=== PATIENT | female | born 2000 | race Caucasian/White ===

== ENCOUNTER 2021-03-13 20:45 | Emergency (ER) | payer SELFPAY ==
[2021-03-13 20:46] VITALS: BP 113/71; PULSE 101; RESP 16; O2SAT 100; BMI 21.9
--- NOTE | 2021-03-13 21:05 | CT_ITS ---
PROCEDURE INFORMATION: Exam: CT Abdomen And Pelvis With Contrast Exam date and time: 03/13/2021 9:05 PM Age: 21 years old Clinical indication: Abdominal pain; Prior surgery; Surgery type: Hiatal hernia repair; Patient HX: Rlq/llq pain TECHNIQUE: Imaging protocol: Computed tomography of the abdomen and pelvis with contrast. Radiation optimization: All CT scans at this facility use at least one of these dose optimization techniques: automated exposure control; mA and/or kV adjustment per patient size (includes targeted exams where dose is matched to clinical indication); or iterative reconstruction. Contrast material: ISOVUE; Contrast volume: 75 ml; Contrast route: IV; COMPARISON: No relevant prior studies available. FINDINGS: Liver: Normal. No mass. Gallbladder and bile ducts: Normal. No calcified stones. No ductal dilation. Pancreas: Normal. No ductal dilation. Spleen: Normal. No splenomegaly. Adrenal glands: Normal. No mass. Kidneys and ureters: Normal. No hydronephrosis. Stomach and bowel: Unremarkable. No obstruction. No mucosal thickening. Appendix: Normal appendix. Intraperitoneal space: The trace physiologic free fluid in the pelvis. Vasculature: Unremarkable. No abdominal aortic aneurysm. Lymph nodes: Unremarkable. No enlarged lymph nodes. Urinary bladder: Unremarkable as visualized. Reproductive: Unremarkable as visualized. Bones/joints: Unremarkable. No acute fracture. Soft tissues: Unremarkable. IMPRESSION: No acute findings.
[2021-03-13 21:13] LABS: Microscopic, Urine URINE MICROSCOPIC (MICROSCOPIC)
[2021-03-13 21:18] LABS: Basophils # 0.2 K/mm3 (0-0.2); Basophils % 2.3 % (0.1-2.0); Eosinophils # 0.2 K/mm3 (0.0-0.4); Eosinophils % 2.5 % (0.1-12.0); Hematocrit 43.6 % (37.0-47.0); Hemoglobin 14.1 g/dL (12.2-16.2); Lymphocytes # 3.5 K/mm3 (0.7-4.5); Lymphocytes % 41.3 % (10-50); Mean Corpuscular HGB Conc 32.4 g/dL (31.8-35.4); Mean Corpuscular Hemoglobin 30.3 pg (27.0-31.2); Mean Corpuscular Volume 93.6 fl (81-99); Mean Platelet Volume 9.3 fl (7.4-10.4); Monocytes # 0.6 K/mm3 (0.1-1.0); Monocytes % 6.7 % (1.7-9.3); Neutrophils % 47.2 % (37.0-80.0); Platelet Count 266 K/mm3 (142-424); Red Blood Count 4.66 M/mm3 (4.20-5.40); Red Cell Distribution Width 12.1 % (11.5-17.5); White Blood Count 8.5 K/mm3 (4.8-10.8)
[2021-03-13 21:29] LABS: HCG Qualitative, Serum Negative (Negative)
[2021-03-13 21:30] LABS: Appearance,Urine CLEAR (Clear); Bilirubin,Urine Negative (Negative); Blood, Urine Negative (Negative); Color,Urine YELLOW (Yellow); Glucose,Urine (UA) Negative (Negative); Ketones,Urine Negative (Negative); Leukocyte Esterase,Urine Negative (Negative); Nitrate,Urine Negative (Negative); PH,Urine 6.5 (5.0-8.5); Protein,Urine Negative (Negative); Specific Gravity, Urine <= 1.005 (1.005-1.030); Urobilinogen,Urine 0.2 EU/dl (0.2)
[2021-03-13 21:37] LABS: Alanine Aminotransferase 19 U/L (12-78); Albumin Level 5.3 g/dl (3.5-5.0); Albumin/Globulin Ratio 1.6 (1.1-1.8); Alkaline Phosphatase 45 U/L (38-126); Amylase 70 U/L (30-110); Anion Gap 13.7 mEq/L (5-15); Aspartate Amino Transferase 34 U/L (14-36); Bilirubin,Total 0.4 mg/dl (0.2-1.3); Blood Urea Nitrogen 13 mg/dl (7-17); Calcium 10.2 mg/dl (8.4-10.2); Carbon Dioxide 30 mmol/L (22.0-30.0); Chloride 97 mmol/L (98-107); Creatinine Clearance Estimated 92 mL/min (50-200); Estimated Glomerular Filt Rate 90 ml/min (>60); GFR (African American) 109 ML/MIN (>60); Globulin 3.4 g/dL (1.3-3.2); Glucose 105 mg/dl (74-100); Potassium 3.7 mmoL/L (3.5-5.1); Sodium 137 mmol/L (136-145); Total Protein,Serum 8.7 g/dl (6.3-8.2)
[2021-03-13 21:37] LABS: Lipase 78 U/L (23-300)
[2021-03-13 21:42] LABS: C-Reactive Protein 0.6 mg/L (0-4)
[2021-03-13 21:48] LABS: Bacteria,Urine 1+ /lpf
[2021-03-13 21:49] LABS: Erythrocyte Sedimentation Rate 3 mm/hr (0-20)
--- NOTE | 2021-03-13 21:49 | [facility].EDNVD ---
ED Disposition Clinical Impression: Abdominal pain Qualifiers: Abdominal location: right lower quadrant Qualified Code(s): R10.31 - Right lower quadrant pain Disposition: Home, Self-Care Condition on Discharge: Good Instructions: DI for Acute Abdominal Pain Additional Instructions: fluids and call pcp for follow up Referrals: Evelyn Boykin APRN [Primary Care Provider] - - Critical Care Critical Care Time: No Attestation: On 03/13/21, the high probability of a clinically significant, sudden or life threatening deterioration of the following system(s) required my full and direct attention, intervention and personal management. The time I documented below is in addition to time spent performing reported procedures but includes the following listed in this critical care notation. Medical Decision Making - Medical Records Medical records reviewed: Yes: I reviewed the patient's medical records. - Huan Inquiry Pt receiving controlled substance: No Vital Signs: 03/13/21 20:46 03/13/21 22:01 Temperature 98.8 F Temperature Source Oral Oral Pulse Rate 92 H Pulse Rate [Right Radial] 101 H Respiratory Rate 16 16 Blood Pressure 109/72 L Blood Pressure [Right Arm] 113/71 Blood Pressure Mean [Right Arm] 85 Blood Pressure Source Automatic Cuff Blood Pressure Source [Right Arm] Automatic Cuff Blood Pressure Position Sitting Blood Pressure Position [Right Arm] Sitting 02 Sat by Pulse Oximetry 100 Oxygen Delivery Method Room Air Room Air - Lab Data Lab results reviewed: Yes: I reviewed the patient's lab results. Lab Results 03/13/21 20:50: Urine Color Yellow, Urine Appearance Clear, Urine pH 6.5, Ur Specific [place] <= 1.005, Urine Protein Negative, Urine Glucose (UA) Negative, Urine Ketones Negative, Urine Blood Negative, Urine Nitrate Negative, Urine Bilirubin Negative, Urine Urobilinogen 0.2, Ur Leukocyte Esterase Negative, Urine RBC None, Urine WBC 3-5, Ur Squamous Epith Cells 5-10, Urine Bacteria 1+ 03/13/21 20:50: WBC 8.5, RBC 4.66, Hgb 14.1, Hct 43.6, MCV 93.6, MCH 30.3, MCHC 32.4, RDW 12.1, Plt Count 266, MPV 9.3, Neut % (Auto) 47.2, Lymph % (Auto) 41.3, Moody % (Auto) 6.7, Eos % (Auto) 2.5, Baso % (Auto) 2.3 H, Neut # (Auto) 4.0, Lymph # (Auto) 3.5, Moody # (Auto) 0.6, Eos # (Auto) 0.2, Baso # (Auto) 0.2, ESR 3 03/13/21 20:50: Sodium 137, Potassium 3.7, Chloride 97 L, Carbon Dioxide 30, Anion Gap 13.7, BUN 13, Creatinine 0.80, Estimated Creat Clear 92, Estimated GFR 90, Est GFR ( Amer) 109, Glucose 105 H, Calcium 10.2, Total Bilirubin 0.4, AST 34, ALT 19, Alkaline Phosphatase 45, C-Reactive Protein 0.6, Total Protein 8.7 H, Albumin 5.3 H, Globulin 3.4 H, Albumin/Globulin Ratio 1.6, Amylase 70, Procalcitonin 0.041 03/13/21 20:50: Serum HCG, Qual Negative 03/13/21 21:00: Lipase 78 Result diagrams: 03/13/21 20:50 03/13/21 20:50 Orders (Tests/Meds): ED MEDICATIONS Generic Name Dose Route Start Last Admin Trade Name Freq PRN Reason Stop Dose Admin Lactated Ringer's 1,000 mls @ 999 mls/hr 03/13/21 21:15 03/13/21 21:14 Lactated Ringer's 1000 Ml Bag IV 03/13/21 22:15 999 mls/hr .[id number] MOE Administration Discontinued Medications Generic Name Dose Route Start Last Admin Trade Name Freq PRN Reason Stop Dose Admin Iopamidol 75 ml 03/13/21 21:33 03/13/21 21:41 Iopamidol-370 (76%);100ml Bottle IV 03/13/21 21:34 75 ml ONCE ONE Administration Sodium Chloride 10 ml 03/13/21 21:33 03/13/21 21:41 Sodium Chloride 0.9% 10ml Syr (Rad Only) IV 03/13/21 21:34 10 ml ONCE ONE Administration - CT Data CT Scan: Abdomen, Pelvis Time Received: 22:[address] Reviewed: Yes: I have viewed the radiologist's interpretation Preliminary Findings: Normal/NAD Medical Decision Narrative: stable exam and labs and ct - possible ibs Nausea/Vomiting/Diarrhea HPI - General Chief complaint: Abdominal Pain Stated complaint: Right side pain Time Seen by Provider: 03/13/21
[2021-03-13 21:56] LABS: Procalcitonin 0.041 ng/mL (0.0-2.0)
[2021-03-13 22:01] VITALS: BP 109/72; PULSE 92; RESP 16; TEMP 37.1; O2SAT 100
== END 2021-03-13 22:01 | disposition home or self-care (01) ==
PROVIDERS: Emergency Provider Emergency Medicine; PCP Nurse Practitioner Family
DX: R10.31 Right lower quadrant pain (principal); R10.32 Left lower quadrant pain
CPT/HCPCS: 74177; 80053; 81001; 82150; 83690; 84145; 84703; 85025; 85651; 86140; 96365; 99283; Q9967